=== PATIENT | male | born 1995 | race Caucasian/White ===

== ENCOUNTER → 2023-09-04 06:33 | Day surgery (SDC) | payer BC, SELFPAY | LOC: GI 06:33 | PROVIDERS: ATTENDING PHYSICIAN Internal Medicine Gastroenterology | DX: K20.0 Eosinophilic esophagitis (principal); K44.9 Diaphragmatic hernia without obstruction or gangrene; K31.89 Other diseases of stomach and duodenum; R13.10 Dysphagia, unspecified; R12 Heartburn; R93.3 Abnormal findings on diagnostic imaging of other parts of digestive tract | CPT/HCPCS: 43239; 88305; 88312; 88342 ==

== ENCOUNTER → 2024-01-01 06:23 | Day surgery (SDC) | payer BC, SELFPAY | LOC: GI 06:23 | PROVIDERS: ATTENDING PHYSICIAN Internal Medicine Gastroenterology | DX: K20.0 Eosinophilic esophagitis (principal); K29.60 Other gastritis without bleeding; K44.9 Diaphragmatic hernia without obstruction or gangrene; R13.10 Dysphagia, unspecified | CPT/HCPCS: 43239; 88305; 88312; 88342 ==

== ENCOUNTER → 2024-08-03 15:07 | Outpatient (REF) | payer BC, SELFPAY | LOC: RAD 15:07 | PROVIDERS: ATTENDING PHYSICIAN Surgery Vascular Surgery; FAMILY PHYSICIAN Family Medicine | DX: Z86.72 Personal history of thrombophlebitis (principal) | CPT/HCPCS: 93970 ==

== ENCOUNTER → 2024-09-28 07:48 | Outpatient (REF) | payer BC, SELFPAY | LOC: PAVMRI 07:48 | PROVIDERS: ATTENDING PHYSICIAN Surgery Vascular Surgery; FAMILY PHYSICIAN Family Medicine | DX: Q26.8 Other congenital malformations of great veins (principal); D68.51 Activated protein C resistance; Z86.72 Personal history of thrombophlebitis | CPT/HCPCS: 72198; 74185; A9585 ==